=== PATIENT | female | born 1960 | race Caucasian/White ===

== ENCOUNTER → 2021-09-26 | Outpatient (CLI) | payer OTHER ==
[~2021-09-26] MED LIST: ESTR2TAB4 PO; LISI5TAB20 PO; LORA10TA7 PO; MONT10TA21 PO; MULT-974 PO; VIT D3 PO
--- NOTE | 2021-09-26 12:29 | Diagnostic Imaging Report ---
INDICATION: Fall. Lower back pain. COMPARISON: None FINDINGS: Frontal and lateral radiographic views of the chest show mild grade 1 anterolisthesis L4-L5. There is no evidence of jumped facets. Vertebral body heights are maintained. There is no acute fracture. Mild multilevel degenerative changes are noted and consistent intervertebral disc height loss with endplate osteophyte formations and multilevel facet arthropathy. Included small bowel loops are nondistended. Note is made of calcified aortic atherosclerosis. IMPRESSION: 1. Mild grade 1 anterolisthesis of L4-L5, but no evidence acute fracture-dislocation of the lumbar spine. 2. Mild multilevel degenerative changes. Dictated by: Dictated on workstation # [id number]
== END ==
LOC: RAD FS 10:30
PROVIDERS: ATTEND Nurse Practitioner Family
DX: M43.16 Spondylolisthesis, lumbar region (principal); M47.816 Spondylosis without myelopathy or radiculopathy, lumbar region
CPT/HCPCS: 72100